=== PATIENT | male | born 2000 | race Native Hawaiian/Other Pacific Islander ===

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

== ENCOUNTER 2018-02-27 18:42 | Emergency (ER) | payer OTHER ==
[~2018-02-27] VITALS: Ht 172.7 cm; Wt 59.0 kg
[~2018-02-27 18:42] MED LIST changes: +FLONASE AL50 MCG/AC1
[2018-02-27 20:11] VITALS: BP 112/59; TEMP 97.1
== END 2018-02-27 20:12 | disposition home or self-care (01) ==
LOC: ED 18:42
DX: K04.7 Periapical abscess without sinus (principal)
CPT/HCPCS: 96372; 99283; J0696; J1885

== ENCOUNTER 2018-05-03 00:55 | Emergency (ER) | payer OTHER ==
[~2018-05-03] VITALS: Ht 172.7 cm; Wt 59.0 kg
[2018-05-03 03:06] VITALS: BP 120/74; TEMP 98.5
== END 2018-05-03 03:07 | disposition short-term general hospital (02) ==
LOC: ED 00:55
DX: N44.00 Torsion of testis, unspecified (principal)
CPT/HCPCS: 36415; 96372; 99282; 99284; J1885

== ENCOUNTER 2018-05-03 04:02 | Outpatient (CLI) | payer OTHER | END 2018-05-03 05:20 | disposition short-term general hospital (02) | LOC: AMB 04:02 | DX: N44.00 Torsion of testis, unspecified (principal) | CPT/HCPCS: A0425; A0429 ==

== ENCOUNTER 2018-06-24 22:36 | Emergency (ER) | payer OTHER ==
[~2018-06-24] VITALS: Ht 165.1 cm; Wt 5.9 kg
[2018-06-24 23:20] LABS: PLATELET COUNT 262 K/uL (142-355)
[2018-06-25 02:24] VITALS: BP 91/57; TEMP 97.9
== END 2018-06-25 02:33 | disposition home or self-care (01) ==
LOC: ED 22:36
PROVIDERS: Emergency Medicine
DX: R10.33 Periumbilical pain (principal)
CPT/HCPCS: 36415; 80053; 81000; 82150; 83690; 85027; 99283; Q9963

== ENCOUNTER 2018-07-26 19:16 | Emergency (ER) | payer OTHER ==
[~2018-07-26] VITALS: Ht 172.7 cm; Wt 59.0 kg
[2018-07-26 21:10] LABS: PLATELET COUNT 256 K/uL (142-355)
[2018-07-26 21:18] LABS: POTASSIUM 3.9 mmol/L (3.6-5.2)
[2018-07-26 21:53] VITALS: BP 114/73; TEMP 98.1
== END 2018-07-26 22:00 | disposition home or self-care (01) ==
LOC: ED 19:16
PROVIDERS: Family Medicine
DX: K21.9 Gastro-esophageal reflux disease without esophagitis (principal); R10.13 Epigastric pain
CPT/HCPCS: 36415; 80053; 81000; 85027; 99283

== ENCOUNTER 2018-09-12 05:08 | Emergency (ER) | payer OTHER ==
[~2018-09-12] VITALS: Ht 172.7 cm; Wt 59.0 kg
[2018-09-12 05:20] VITALS: TEMP 98.6
[2018-09-12 06:29] VITALS: BP 101/61
== END 2018-09-12 06:33 | disposition home or self-care (01) ==
LOC: ED 05:08
DX: S86.912A Strain of unspecified muscle(s) and tendon(s) at lower leg level, left leg, initial encounter (principal); M79.631 Pain in right forearm; S56.911A Strain of unspecified muscles, fascia and tendons at forearm level, right arm, initial encounter
CPT/HCPCS: 99282

== ENCOUNTER 2018-10-25 22:27 | Emergency (ER) | payer OTHER ==
[~2018-10-25] VITALS: Ht 172.7 cm; Wt 56.7 kg
[2018-10-25 23:45] VITALS: BP 110/62; TEMP 97.9
== END 2018-10-25 23:45 | disposition home or self-care (01) ==
LOC: ED 22:27
PROC: 0HQGXZZ Repair Left Hand Skin, External Approach (ICD-10-PCS; principal; 2018-10-25)
DX: S61.012A Laceration without foreign body of left thumb without damage to nail, initial encounter (principal); W45.8XXA Other foreign body or object entering through skin, initial encounter
CPT/HCPCS: 90471; 90715; 99283

== ENCOUNTER 2018-11-19 09:31 | Outpatient (CLI) | payer OTHER | END 2018-11-19 09:34 | disposition short-term general hospital (02) | LOC: AMB 09:31 | DX: R11.2 Nausea with vomiting, unspecified (principal); R19.7 Diarrhea, unspecified; R10.33 Periumbilical pain | CPT/HCPCS: A0425; A0427 ==

== ENCOUNTER 2018-11-19 09:35 | Observation (INO) | payer OTHER ==
[2018-11-19] VITALS (16 sets, daily range): BP systolic 82–130; BP diastolic 34–92; TEMP 97.5–98; Ht 172.7 cm; Wt 56.2 kg
[~2018-11-19] VITALS: Ht 172.7 cm; Wt 56.2 kg
[2018-11-19 10:06] LABS: PLATELET COUNT 251 K/uL (142-355)
[2018-11-19 10:12] LABS: POTASSIUM 3.6 mmol/L (3.6-5.2)
[2018-11-20] VITALS: BP 141/57; TEMP 97
[2018-11-20 04:00] VITALS: BP 92/46; TEMP 97.8
[2018-11-20 05:15] LABS: PLATELET COUNT 167 K/uL (142-355)
[2018-11-20 08:00] VITALS: BP 97/52; TEMP 97.6
== END 2018-11-20 11:45 | disposition home or self-care (01) ==
LOC: ED 09:35 → MED/SURG 14:35
PROVIDERS: Family Medicine; ADMIT Emergency Medicine
DX: K52.89 Other specified noninfective gastroenteritis and colitis (principal); E86.0 Dehydration; R11.2 Nausea with vomiting, unspecified; R19.7 Diarrhea, unspecified; R10.31 Right lower quadrant pain; R00.1 Bradycardia, unspecified
CPT/HCPCS: 36415; 80053; 80307; 81000; 82150; 82550; 83690; 84484; 85027; 93005; 96360; 96361; 96365; 96375; 99220; 99284; G0378; J1885; J2405; J3490; J7060; J7120

== ENCOUNTER 2018-12-27 18:28 | Emergency (ER) | payer OTHER ==
[~2018-12-27] VITALS: Ht 172.7 cm; Wt 59.0 kg
[2018-12-27 20:01] VITALS: BP 105/54; TEMP 100.2
== END 2018-12-27 20:04 | disposition home or self-care (01) ==
LOC: ED 18:28
DX: J06.9 Acute upper respiratory infection, unspecified (principal); F17.210 Nicotine dependence, cigarettes, uncomplicated
CPT/HCPCS: 87502; 87651; 99283

== ENCOUNTER 2018-12-28 02:44 | Inpatient (IN) | payer OTHER ==
[~2018-12-28] VITALS: Ht 172.7 cm; Wt 57.2 kg
[2018-12-28 02:45] VITALS: BP 108/63; TEMP 101.8
[2018-12-28 03:57] LABS: PLATELET COUNT 213 K/uL (142-355)
[2018-12-28 04:02] LABS: POTASSIUM 4.3 mmol/L (3.6-5.2)
[2018-12-28 06:15] VITALS: BP 100/40; TEMP 99; Ht 172.7 cm; Wt 57.2 kg
[2018-12-28 06:51] LABS: PARTIAL THROMBOPLASTIN TIME 23.2 SECONDS (24.5-33.6)
[2018-12-28 08:00] VITALS: BP 92/39; TEMP 98.2
[2018-12-28 12:00] VITALS: BP 95/46; TEMP 97.5
[2018-12-28 16:00] VITALS: BP 107/52; TEMP 97.8
[2018-12-28 20:00] VITALS: BP 101/45; TEMP 98.2
[2018-12-29] VITALS: BP 111/48; TEMP 98.1
[2018-12-29 04:00] VITALS: BP 105/45; TEMP 98
[2018-12-29 08:39] VITALS: BP 102/50; TEMP 97.4
[2018-12-29 12:00] VITALS: BP 103/55; TEMP 98.1
[2018-12-29] MEDS ORDERED: LEVAQUIN 500MG TAB PO (12:32)
--- NOTE | 2018-12-29 14:12 | NUR ---
DR ASHRAF ORDER THE PATIENT DISCHARGED. I TOOK OUT THE 20G AND THE CATHITER IS INTACT. THE SIGHT IS CLEAN DRY AND INTACT AND SECURED WITH A BANDAGE. THE TELEMTRY WAS ALSO DISCONTINUED.
== END 2018-12-29 14:08 | disposition home or self-care (01) | DRG 195 ==
LOC: ED 02:44 → MED/SURG 04:51
PROVIDERS: Internal Medicine; ADMIT Hospitalist
DX: J18.8 Other pneumonia, unspecified organism (principal); Z72.0 Tobacco use
CPT/HCPCS: 36415; 80053; 81000; 82150; 83605; 83690; 85027; 85610; 85730; 87040; 87081; 94640; 94664; 94760; 96360; 96365; 96376; 99284; J0456; J1956; J2405; J2930

== ENCOUNTER 2018-12-31 15:07 | Observation (INO) | payer OTHER ==
[~2018-12-31] VITALS: Ht 172.7 cm; Wt 52.8 kg
[2018-12-31] VITALS (7 sets, daily range): BP systolic 101–123; BP diastolic 51–75; TEMP 97.6–98
[~2018-12-31 15:07] MED LIST changes: +LEVAQUIN 500MG TAB PO
[2018-12-31 15:59] LABS: PLATELET COUNT 327 K/uL (142-355)
[2018-12-31 16:02] LABS: POTASSIUM 4.5 mmol/L (3.6-5.2)
[2019-01-01 04:00] VITALS: BP 104/50; TEMP 97.8
[2019-01-01 04:33] LABS: PLATELET COUNT 270 K/uL (142-355)
[2019-01-01 04:44] LABS: POTASSIUM 4.1 mmol/L (3.6-5.2)
[2019-01-01 05:33] VITALS: BP 123/75; TEMP 97.6; Ht 172.7 cm; Wt 52.8 kg
[2019-01-01 08:00] VITALS: BP 100/45; TEMP 98.6
== END 2019-01-01 11:25 | disposition home or self-care (01) ==
LOC: ED 15:07 → MED/SURG 17:55
PROVIDERS: Family Medicine; ADMIT Emergency Medicine Emergency Medical Services
DX: J18.8 Other pneumonia, unspecified organism (principal); R11.2 Nausea with vomiting, unspecified; D72.828 Other elevated white blood cell count; R06.2 Wheezing
CPT/HCPCS: 36415; 80053; 85027; 87502; 87651; 96360; 96372; 96375; 99220; 99284; G0378; J0456; J0696; J2405; J2930

== ENCOUNTER 2019-03-22 22:57 | Emergency (ER) | payer OTHER ==
[~2019-03-22] VITALS: Ht 167.6 cm; Wt 58.5 kg
[2019-03-22 23:45] VITALS: BP 112/64; TEMP 98.1
== END 2019-03-22 23:45 | disposition home or self-care (01) ==
LOC: ED 22:57
DX: L01.00 Impetigo, unspecified (principal)
CPT/HCPCS: 99282

== ENCOUNTER 2019-03-24 09:31 | Observation (INO) | payer OTHER ==
[~2019-03-24] VITALS: Ht 172.7 cm; Wt 53.6 kg
[2019-03-24] VITALS (8 sets, daily range): BP systolic 101–110; BP diastolic 52–67; TEMP 98.88–99.9; Ht 172.7 cm; Wt 53.6 kg
[2019-03-24 10:33] LABS: PLATELET COUNT 225 K/uL (142-355)
[2019-03-24 10:40] LABS: POTASSIUM 4.3 mmol/L (3.6-5.2)
[2019-03-25] VITALS: BP 109/57; TEMP 97.7
[2019-03-25 04:00] VITALS: BP 98/50; TEMP 97.6
[2019-03-25 05:26] LABS: PLATELET COUNT 222 K/uL (142-355)
[2019-03-25 05:33] LABS: POTASSIUM 4.3 mmol/L (3.6-5.2)
[2019-03-25 08:19] VITALS: BP 99/46; TEMP 98.2
[2019-03-25] MEDS ORDERED: AMOX500T5 PO (11:05)
== END 2019-03-25 13:20 | disposition home or self-care (01) ==
LOC: ED 09:31 → MED/SURG 14:10
PROVIDERS: Internal Medicine; ADMIT Emergency Medicine
DX: J18.8 Other pneumonia, unspecified organism (principal); J02.0 Streptococcal pharyngitis; L98.8 Other specified disorders of the skin and subcutaneous tissue
CPT/HCPCS: 36415; 80053; 83605; 85027; 87040; 87502; 87651; 96365; 96367; 99220; 99284; G0378; J0696

== ENCOUNTER 2019-04-23 00:05 | Emergency (ER) | payer OTHER ==
[~2019-04-23] VITALS: Ht 172.7 cm; Wt 53.5 kg
[~2019-04-23 00:05] MED LIST changes: +AMOX500T5 PO
[2019-04-23 04:00] VITALS: BP 98/69; TEMP 98
== END 2019-04-23 04:00 | disposition home or self-care (01) ==
LOC: ED 00:05
DX: R07.89 Other chest pain (principal); R00.1 Bradycardia, unspecified
CPT/HCPCS: 82550; 84484; 93005; 99283

== ENCOUNTER 2019-05-05 13:25 | Emergency (ER) | payer OTHER ==
[~2019-05-05] VITALS: Ht 172.7 cm; Wt 54.4 kg
[2019-05-05 13:32] VITALS: TEMP 99.3
[2019-05-05 13:58] LABS: PLATELET COUNT 237 K/uL (142-355)
[2019-05-05 13:59] LABS: POTASSIUM 4.1 mmol/L (3.6-5.2)
[2019-05-05 16:00] VITALS: BP 112/62
== END 2019-05-05 16:02 | disposition home or self-care (01) ==
LOC: ED 13:25
PROVIDERS: Emergency Medicine
DX: J02.0 Streptococcal pharyngitis (principal); J40 Bronchitis, not specified as acute or chronic
CPT/HCPCS: 80053; 85027; 87502; 87651; 96372; 99283; J0696

== ENCOUNTER 2019-10-10 09:58 | Emergency (ER) | payer OTHER ==
[~2019-10-10] VITALS: Ht 172.7 cm; Wt 59.0 kg
[2019-10-10 10:35] LABS: PLATELET COUNT 169 K/uL (142-355)
[2019-10-10 11:55] VITALS: BP 115/72; TEMP 98.1
== END 2019-10-10 11:58 | disposition home or self-care (01) ==
LOC: ED 10:01
PROVIDERS: Hospitalist
DX: J06.9 Acute upper respiratory infection, unspecified (principal); R50.9 Fever, unspecified; U07.1 COVID-19
CPT/HCPCS: 80048; 81000; 85027; 87502; 87635; 87651; 93005; 96360; 96365; 96375; 99284; J0696; J2930; U0003

== ENCOUNTER 2019-11-08 20:45 | Emergency (ER) | payer OTHER ==
[~2019-11-08] VITALS: Ht 172.7 cm; Wt 54.4 kg
[2019-11-08 22:33] VITALS: BP 104/73; TEMP 97.9
== END 2019-11-08 22:33 | disposition home or self-care (01) ==
LOC: ED 20:45
DX: K08.89 Other specified disorders of teeth and supporting structures (principal); K02.9 Dental caries, unspecified
CPT/HCPCS: 96372; 99283; J0696; J1885

== ENCOUNTER 2020-01-02 14:33 | Emergency (ER) | payer OTHER ==
[~2020-01-02] VITALS: Ht 172.7 cm; Wt 59.4 kg
[2020-01-02 14:39] VITALS: TEMP 98.2
[2020-01-02 16:02] LABS: PLATELET COUNT 244 K/uL (142-355)
[2020-01-02 16:06] LABS: POTASSIUM 3.9 mmol/L (3.6-5.2)
[2020-01-02 18:30] VITALS: BP 122/78
== END 2020-01-02 18:30 | disposition home or self-care (01) ==
LOC: ED 14:33
PROVIDERS: Hospitalist
DX: R11.2 Nausea with vomiting, unspecified (principal); J06.9 Acute upper respiratory infection, unspecified; K29.60 Other gastritis without bleeding
CPT/HCPCS: 36415; 80048; 81000; 83605; 85027; 87040; 87502; 87651; 96360; 96361; 96365; 96366; 96375; 96376; 99284; J1170; J1885; J1956; J2405; Q9963

== ENCOUNTER 2020-01-02 22:51 | Observation (INO) | payer OTHER ==
[~2020-01-02] VITALS: Ht 172.7 cm; Wt 54.7 kg
[2020-01-02 23:14] VITALS: BP 110/57; TEMP 98.4
[2020-01-03 00:59] VITALS: BP 108/69; TEMP 98; Ht 172.7 cm; Wt 54.7 kg
[2020-01-03 04:00] VITALS: BP 95/49; TEMP 98.3
[2020-01-03 05:38] LABS: PLATELET COUNT 209 K/uL (142-355)
[2020-01-03 05:39] LABS: POTASSIUM 3.6 mmol/L (3.6-5.2)
[2020-01-03 08:00] VITALS: BP 98/44; TEMP 98.8
[2020-01-03 12:00] VITALS: BP 103/53; TEMP 98.2
== END 2020-01-03 13:50 | disposition home or self-care (01) ==
LOC: ED 22:51 → MED/SURG 23:59
PROVIDERS: ADMIT Internal Medicine Endocrinology, Diabetes & Metabolism
DX: K52.89 Other specified noninfective gastroenteritis and colitis (principal); R11.2 Nausea with vomiting, unspecified
CPT/HCPCS: 36415; 80053; 85027; 96365; 96366; 96375; 99220; 99283; G0378; J1956; J3490

== ENCOUNTER 2020-02-14 16:00 | Emergency (ER) | payer OTHER ==
[~2020-02-14] VITALS: Ht 172.7 cm; Wt 59.0 kg
[2020-02-14 16:25] VITALS: BP 110/65; TEMP 98.2
== END 2020-02-14 17:55 | disposition home or self-care (01) ==
LOC: ED 16:00
DX: R05 Cough (principal); R09.89 Other specified symptoms and signs involving the circulatory and respiratory systems
CPT/HCPCS: 99281

== ENCOUNTER 2020-02-15 12:42 | Emergency (ER) | payer OTHER ==
[~2020-02-15] VITALS: Ht 172.7 cm; Wt 59.0 kg
[2020-02-15 12:49] VITALS: TEMP 97.8
[2020-02-15 13:55] LABS: PLATELET COUNT 223 K/uL (142-355)
[2020-02-15 14:02] LABS: POTASSIUM 4.5 mmol/L (3.6-5.2)
[2020-02-15 15:00] VITALS: BP 118/74
== END 2020-02-15 15:13 | disposition home or self-care (01) ==
LOC: ED 12:42
PROVIDERS: Family Medicine
DX: J06.9 Acute upper respiratory infection, unspecified (principal); R05 Cough; J30.89 Other allergic rhinitis; Z03.818 Encounter for observation for suspected exposure to other biological agents ruled out
CPT/HCPCS: 80053; 81000; 85027; 87502; 87635; 87651; 99283; U0003

== ENCOUNTER 2020-05-23 17:43 | Emergency (ER) | payer OTHER ==
[~2020-05-23] VITALS: Ht 172.7 cm; Wt 59.0 kg
[2020-05-23 18:33] LABS: PLATELET COUNT 225 K/uL (142-355)
[2020-05-23 18:47] LABS: POTASSIUM 4.2 mmol/L (3.6-5.2)
[2020-05-23 20:20] VITALS: BP 112/57; TEMP 98.2
== END 2020-05-23 20:20 | disposition home or self-care (01) ==
LOC: ED 17:43
PROVIDERS: Family Medicine
DX: M94.0 Chondrocostal junction syndrome [Tietze] (principal); V89.2XXA Person injured in unspecified motor-vehicle accident, traffic, initial encounter; Y92.89 Other specified places as the place of occurrence of the external cause
CPT/HCPCS: 36415; 80053; 82550; 85027; 93005; 96374; 99284; J1885; Q9963

== ENCOUNTER 2020-08-11 21:11 | Emergency (ER) | payer OTHER ==
[2020-08-25 11:20] LABS: PLATELET COUNT 174 K/uL (142-355)
[2020-08-25 11:22] LABS: POTASSIUM 4.3 mmol/L (3.6-5.2)
== END 2020-08-11 23:00 | disposition left against medical advice (07) ==
LOC: ED 21:11
PROVIDERS: Family Medicine
DX: J06.9 Acute upper respiratory infection, unspecified (principal); Z53.29 Procedure and treatment not carried out because of patient's decision for other reasons; Z20.822 Contact with and (suspected) exposure to COVID-19
CPT/HCPCS: 80053; 81000; 85027; 87502; 87635; 87651; 99283; U0003